=== PATIENT | female | born 1995 | race Caucasian/White ===

== ENCOUNTER 2020-03-12 00:34 | Inpatient (IN) | payer OTHER ==
[~2020-03-12] VITALS: Ht 162.6 cm; Wt 80.4 kg
[2020-03-12] MEDS ORDERED: OXYTOCIN 30U/ 0.9% NaCL 500ML 500 ML IV ONE (01:35)
[2020-03-12 01:58] LABS: BASOPHILS # (AUTO) 0.04 x10^3/uL (0-0.1); BASOPHILS % (AUTO) 0 % (0-1); EOSINOPHILS # (AUTO) 0.26 x10^3/uL (0-0.4); EOSINOPHILS % (AUTO) 2 % (1-7); LYMPHOCYTES # (AUTO) 2.37 x10^3/uL (1-3.4); LYMPHOCYTES % (AUTO) 22 % (22-44); MD NO; MEAN CORPUSCULAR HEMOGLOBIN 30.1 pg (27.0-34.8); MEAN CORPUSCULAR HGB CONC 33.1 g/dL (32.4-35.8); MEAN CORPUSCULAR VOLUME 91.2 fL (80-100); MEAN PLATELET VOLUME 9.2 fL (7.4-10.4); MONOCYTES % (AUTO) 10 % (2-9); NEUTROPHILS # (AUTO) 7.23 x10^3/uL (1.8-6.8); NEUTROPHILS % (AUTO) 66 % (42-75); PLATELET COUNT 217 x10^3/uL (130-400); RED BLOOD COUNT 3.83 x10^6/uL (3.82-5.3); RED CELL DISTRIBUTION WIDTH 14.1 % (9.6-15.2)
[2020-03-12] MEDS ORDERED: ONDANSETRON 2MG/ML, 2ML IVPush PRN ×2 (02:00→07:30)
[2020-03-12] MEDS ORDERED: CALCIUM CARBONATE 500 MG TAB.CHEW PO PRN (02:00)
[2020-03-12] MEDS ORDERED: TERBUTALINE 1 MG/ML, 1ML SQ PRN (02:00)
[2020-03-12] MEDS ORDERED: FENTANYL PF 100 MCG/2ML IV PRN (02:00)
[2020-03-12] MEDS ORDERED: TERBUTALINE 1 MG/ML, 1ML IVPush PRN (02:00)
[2020-03-12] MEDS: LACTATED RINGERS 1,000 ML IV SCH ×4 (02:10→17:26)
[2020-03-12] MEDS ORDERED: MISOPROSTOL 25 MCG TABLET ONE (02:31)
[2020-03-12] MEDS ORDERED: LIDOCAINE 1%, 20ML ONE (02:31)
[2020-03-12] MEDS ORDERED: OXYTOCIN 30U/ 0.9% NaCL 500ML 500 ML ONE ×2 (02:32→14:47)
[2020-03-12] MEDS ORDERED: OXYTOCIN 30U/ 0.9% NaCL 500ML 500 ML IV PRN (04:30)
[2020-03-12] MEDS ORDERED: MISOPROSTOL 200 MCG TABLET ONE (05:11)
[2020-03-12] MEDS ORDERED: FENTANYL PF 100 MCG/2ML ONE ×2 (05:30→06:46)
[2020-03-12] MEDS ORDERED: ONDANSETRON 2MG/ML, 2ML ONE ×2 (05:30→11:54)
[2020-03-12] MEDS ORDERED: FENTANYL/BUPIV./NS/PF 250 ML EPIDCONT ONE (06:53)
[2020-03-12] MEDS ORDERED: BUPIVACAINE 0.25% ONE (06:53)
[2020-03-12] MEDS: FENTANYL PF 100 MCG/2ML IVPush PRN ×2 (06:54→16:51)
[2020-03-12] MEDS ORDERED: FENTANYL/BUPIV./NS/PF 250 ML EPIDCONT SCH ×2 (07:15→09:26)
[2020-03-12] MEDS ORDERED: LACTATED RINGERS 1,000 ML IV SCH (07:15)
[2020-03-12 07:24] VITALS: BP 112/77
[2020-03-12] MEDS ORDERED: EPHEDRINE 50 MG/ML, 1ML IVPush PRN ×2 (07:30→09:30)
[2020-03-12] MEDS ORDERED: NALOXONE 0.4 MG/ML, 1ML IVPush PRN ×2 (07:30→09:30)
[2020-03-12] MEDS ORDERED: DIPHENHYDRAMINE 50 MG/ML, 1ML IVPush PRN (07:30)
[2020-03-12] MEDS ORDERED: LACTATED RINGERS 1,000 ML IVBOLUS PRN ×2 (07:30→09:30)
[2020-03-12] MEDS ORDERED: PREN1TAB60 PO (09:39)
[2020-03-12] MEDS ORDERED: LACT1CAP43 PO (09:41)
[2020-03-12] MEDS ORDERED: PROT480P PO (09:41)
[2020-03-12] MEDS ORDERED: NEWBORN KIT ONE (14:01)
[2020-03-12] MEDS: OXYTOCIN 30U/ 0.9% NaCL 500ML 500 ML IV SCH (14:20)
[2020-03-12] MEDS ORDERED: ACETAMINOPHEN 325 MG TABLET PO PRN (14:30)
[2020-03-12] MEDS ORDERED: OXYcodone/APAP 5/325MG TABLET PO PRN (14:30)
[2020-03-12] MEDS ORDERED: MISOPROSTOL 200 MCG TABLET PR PRN (14:30)
[2020-03-12] MEDS ORDERED: BISACODYL 10 MG SUPP PR PRN (14:30)
[2020-03-12] MEDS ORDERED: IBUPROFEN 200 MG TABLET PO PRN (14:30)
[2020-03-12] MEDS ORDERED: ONDANSETRON 2MG/ML, 2ML IV PRN (14:30)
[2020-03-12] MEDS ORDERED: RHOGAM FROM BLOOD BANK 1 NOTE EA IM/IV ONE (14:30)
[2020-03-12] MEDS ORDERED: HYDROcodone/APAP 5/325 TABLET PO PRN (14:30)
[2020-03-12] MEDS: IBUPROFEN 800 MG TABLET PO PRN (17:10)
[2020-03-12 20:00] VITALS: BP 110/72
[2020-03-12 22:00] LABS: BASOPHILS # (AUTO) 0.05 x10^3/uL (0-0.1); BASOPHILS % (AUTO) 0 % (0-1); EOSINOPHILS # (AUTO) 0.26 x10^3/uL (0-0.4); EOSINOPHILS % (AUTO) 2 % (1-7); LYMPHOCYTES # (AUTO) 1.57 x10^3/uL (1-3.4); LYMPHOCYTES % (AUTO) 11 % (22-44); MD NO; MEAN CORPUSCULAR HGB CONC 33.8 g/dL (32.4-35.8); MEAN CORPUSCULAR VOLUME 91.6 fL (80-100); MONOCYTES # (AUTO) 1.27 x10^3/uL (0.2-0.8); MONOCYTES % (AUTO) 9 % (2-9); NEUTROPHILS # (AUTO) 11.64 x10^3/uL (1.8-6.8); NEUTROPHILS % (AUTO) 79 % (42-75); PLATELET COUNT 173 x10^3/uL (130-400); RED BLOOD COUNT 3.43 x10^6/uL (3.82-5.3); RED CELL DISTRIBUTION WIDTH 14.3 % (9.6-15.2)
[2020-03-13] MEDS: OXYTOCIN 30U/ 0.9% NaCL 500ML 500 ML IV SCH ×2 (00:20→20:20)
[2020-03-13 00:45] VITALS: BP 104/67
[2020-03-13] MEDS: LACTATED RINGERS 1,000 ML IV SCH ×2 (01:26→21:58)
[2020-03-13] MEDS ORDERED: RHOGAM FROM BLOOD BANK 1 NOTE EA IM/IV ONE (01:49)
[2020-03-13 05:24] VITALS: BP 101/66
[2020-03-13] MEDS: IBUPROFEN 800 MG TABLET PO PRN ×2 (05:52→15:59)
[2020-03-13 08:00] VITALS: BP 97/64
[2020-03-13] MEDS: DOCUSATE 100 MG CAPSULE PO PRN (08:43)
[2020-03-13] MEDS: PRENATAL VIT/IRON/FA 1 EACH TABLET PO SCH (09:00)
[2020-03-13 12:30] VITALS: BP 100/63
[2020-03-13 19:55] VITALS: BP 124/82
[2020-03-14] MEDS: LACTATED RINGERS 1,000 ML IV SCH ×2 (01:26→09:26)
[2020-03-14] MEDS: IBUPROFEN 800 MG TABLET PO PRN (04:12)
[2020-03-14] MEDS: OXYTOCIN 30U/ 0.9% NaCL 500ML 500 ML IV SCH (06:20)
[2020-03-14 08:15] VITALS: BP 106/69
[2020-03-14] MEDS: DOCUSATE 100 MG CAPSULE PO PRN (08:20)
[2020-03-14] MEDS: PRENATAL VIT/IRON/FA 1 EACH TABLET PO SCH (08:50)
[2020-03-14] MEDS ORDERED: IBUP-1223 PO (09:25)
[2020-03-14] MEDS ORDERED: DOCU-131 PO (09:25)
== END 2020-03-14 11:17 | disposition home or self-care (01) | DRG 807 ==
LOC: LDOP 00:34 → LDIP 01:36 → 2NW 16:19
PROVIDERS: ADMIT Obstetrics & Gynecology; ATTEND Obstetrics & Gynecology
PROC: 10E0XZZ Delivery of Products of Conception, External Approach (ICD-10-PCS; principal; 2020-03-12)
PROC: 0UQMXZZ Repair Vulva, External Approach (ICD-10-PCS; 2020-03-12)
PROC: 3E0R3BZ Introduction of Anesthetic Agent into Spinal Canal, Percutaneous Approach (ICD-10-PCS; 2020-03-12)
PROC: 00HU33Z Insertion of Infusion Device into Spinal Canal, Percutaneous Approach (ICD-10-PCS; 2020-03-12)
PROC: 3E0234Z Introduction of Serum, Toxoid and Vaccine into Muscle, Percutaneous Approach (ICD-10-PCS; 2020-03-13)
DX: O69.1XX0 Labor and delivery complicated by cord around neck, with compression, not applicable or unspecified (principal); Z37.0 Single live birth; Z3A.40 40 weeks gestation of pregnancy; O71.82 Other specified trauma to perineum and vulva; Z20.828 Contact with and (suspected) exposure to other viral communicable diseases
CPT/HCPCS: 36415; 84112; 85025; 85461; 86592; 86850; 86870; 86900; 86922; 86923; 87635; G0378; J2405; J2790; J3010; J2590; J7120

== ENCOUNTER 2021-04-24 08:54 | Emergency (ER) | payer BC, MEDICAID ==
[~2021-04-24] VITALS: Ht 162.6 cm; Wt 69.6 kg
[~2021-04-24 08:54] MED LIST: DOCU-131 PO; IBUP-1223 PO; LACT1CAP43 PO; PREN1TAB60 PO; PROT480P PO
[2021-04-24 09:29] LABS: BASOPHILS % (AUTO) 1 % (0-1); EOSINOPHILS % (AUTO) 7 % (1-7); LYMPHOCYTES % (AUTO) 40 % (22-44); MEAN CORPUSCULAR HEMOGLOBIN 30.3 pg (27.0-34.8); MEAN CORPUSCULAR HGB CONC 33.4 g/dL (32.4-35.8); MEAN PLATELET VOLUME 8.3 fL (7.4-10.4); MONOCYTES % (AUTO) 9 % (2-9); NEUTROPHILS % (AUTO) 42 % (42-75); PLATELET COUNT 251 x10^3/uL (130-400); RED BLOOD COUNT 4.22 x10^6/uL (3.82-5.3); RED CELL DISTRIBUTION WIDTH 13.5 % (9.6-15.2)
[2021-04-24 09:38] LABS: ALANINE AMINOTRANSFERASE 15 U/L (12-78); ALBUMIN 3.8 g/dL (3.4-5.0); ANION GAP 7 mmol/L (5-15); CALCIUM 9.1 mg/dL (8.5-10.1); CHLORIDE 110 mmol/L (98-107); CREATININE 0.77 mg/dL (0.55-1.02)
[2021-04-24 09:40] LABS: ALKALINE PHOSPHATASE 62 U/L (45-117); BILIRUBIN,TOTAL 0.3 mg/dL (0.2-1.0); TOTAL PROTEIN 7.9 g/dL (6.4-8.2)
[2021-04-24 10:16] LABS: MICROSCOPIC NOT IND
[2021-04-24] MEDS ORDERED: RHOGAM FROM BLOOD BANK 1 NOTE EA IM/IV ONE (13:30)
--- NOTE | 2021-04-24 14:13 | NUR ---
PT MEDICATED PER EMAR.
[2021-04-24 14:30] VITALS: BP 95/65
== END 2021-04-24 14:55 | disposition home or self-care (01) ==
LOC: ED 14:45
DX: O03.9 Complete or unspecified spontaneous abortion without complication (principal)
CPT/HCPCS: 36415; 76801; 80053; 81003; 84702; 85025; 86850; 86900; 96372; 99284; J2790